=== PATIENT | female | born 1995 | race Caucasian/White ===

== ENCOUNTER 2017-08-13 17:04 | Emergency (ER) | payer SELFPAY ==
[2017-08-13 18:39] LABS: APPEARANCE,URINE SLIGHTLY-CLOUDY; BILIRUBIN,URINE NEGATIVE (NEGATIVE); COLOR,URINE YELLOW; GLUCOSE, URINE >=500 mg/dL (NEGATIVE); KETONES,URINE NEGATIVE (NEGATIVE); LEUKOCYTE ESTERASE,URINE LARGE (NEGATIVE); NITRITE,URINE NEGATIVE (NEGATIVE); PROTEIN,URINE NEGATIVE (NEGATIVE); URINE SPECIFIC GRAVITY 1.023
--- NOTE | 2017-08-13 18:57 | ER Document Report ---
ED GI/ - General Chief Complaint: Urinary Problem Stated Complaint: BURNING WITH URINATION Time Seen by Provider: 08/13/17 17:54 Mode of Arrival: Ambulatory Information source: Patient TRAVEL OUTSIDE OF THE [place] IN LAST 30 DAYS: No - HPI Patient complains to provider of: Dysuria, Vaginal pain Notes: 08/13/17 18:55 Patient is here with complaints of vaginal pain as well as dysuria. She states that for the last week and has she has had dysuria consistent with previous UTIs she has had in the past. She denies any fevers. She denies any flank pain. No nausea, vomiting, diarrhea. She is also concerned that she may have a rip in her vaginal area as anytime she spreads her legs she has burning pain in her vaginal area. No bleeding. No discharge. No nausea, vomiting, diarrhea. No chest pain or shortness of breath. No other complaints at this time. - Related Data Allergies/Adverse Reactions: No Known Allergies Allergy (Verified 06/02/15 17:40) Past Medical History - Social History Smoking Status: Never Smoker Chew tobacco use (# tins/day): No Frequency of alcohol use: None Drug Abuse: None Family History: Reviewed & Not Pertinent, Arthritis, CAD, DM, Hyperlipidemia, Hypertension, Malignancy, Thyroid Disfunction Patient has suicidal ideation: No Patient has homicidal ideation: No Renal/ Medical History: Denies: Hx Peritoneal Dialysis Past Surgical History: Reports: Hx Section - Immunizations Immunizations up to date: Yes Hx Diphtheria, Pertussis, Tetanus Vaccination: Yes Review of Systems - Review of Systems -: Yes All other systems reviewed and negative Physical Exam - Vital signs Vitals: Temp Pulse Resp BP Pulse Ox 99.3 F 98 18 133/70 H 98 08/13/17 17:45 08/13/17 17:45 08/13/17 17:45 08/13/17 17:45 08/13/17 17:45 - Notes Notes: GENERAL: alert, cooperative, nontoxic, no distress. HEAD: normocephalic, atraumatic EYES: conjunctiva pink without discharge, no external redness or swelling. EARS: no external swelling, no external redness NOSE: atraumatic, no external swelling MOUTH/THROAT: mucous membranes moist and pink, posterior pharynx without erythema, swelling, exudate. No trismus or drooling. NECK: soft, supple, full range of motion, no meningismus. CHEST: no distress, lungs clear and equal throughout. No wheezing, rales, rhonchi. CARDIAC: regular rate and rhythm, no murmur, normal capillary refill, normal pulses. No peripheral edema noted. ABDOMEN: Soft, nontender. No rebound tenderness or guarding. BACK: full range of motion, no CVA tenderness. EXTREMITIES: full range of motion of all extremities. No redness, no swelling. NEURO: alert and oriented x 3, no focal deficits, full range of motion of all extremities. PYSCH: appropriate mood, affect. Patient is cooperative. SKIN: pink, warm, dry, no rash. : Performed with female at the bedside. Patient is noted to have ulcerated and vesicular lesions in the vaginal entrance that are painful. White vaginal discharge with mild odor. Cervix closed. No cervical lesions. No cervical motion tenderness. Course - Re-evaluation Re-evalutation: 08/13/17 20:14 Patient is nontoxic appearing with stable vitals. She is here with complaints of burning with urination as well as burning even without urination. She does appear to have urinary tract infection. is negative. On exam she has multiple ulcerations and vesicular lesions consistent with herpes. Herpes cultures currently pending. Wet prep is positive for bacterial vaginosis. GC chlamydia cultures are currently pending, but the patient was treated with Rocephin and Zithromax in the emergency department. This point she has a benign exam with no signs of PID. She is afebrile. She has no abdominal tenderness on exam. She will be discharged home with a prescription for Bactrim , acyclovir, Flagyl, Mitchell. She was instructed to contact her partner and let him know of her positive symptoms. She will be contacted if her herpes culture is positive. Follow-up with her primary care doctor at the next available appointment for HIV and syphilis testing. Follow-up sooner for worsening symptoms, high fever, persistent vomiting, severe abdominal pain, flank pain, or for any further concerns. The patient is noted to have elevated blood pressure during today's emergency department visit. The patient was informed of this finding. The patient was instructed that this may be related to pre-hypertension and requires further evaluation with a primary care provider. The patient has no hypertensive symptoms at this time. The patient's emergency department workup and current diagnosis were explained to the patient and or family. Follow-up instructions were provided. Medications if prescribed were discussed. Instructions for when to return to the emergency department including specific worrisome symptoms were discussed with the patient and/or family. - Vital Signs Vital signs: Temp Pulse Resp BP Pulse Ox 99.3 F 98 18 133/70 H 98 08/13/17 17:45 08/13/17 17:45 08/13/17 17:45 08/13/17 17:45 08/13/17 17:45 - Laboratory Laboratory results interpreted by me: 08/13/17 18:21 Urine Glucose (UA) >=500 H Urine Urobilinogen 2.0 H Ur Leukocyte Esterase LARGE H Discharge - Discharge Clinical Impression: Bacterial vaginosis UTI (urinary tract infection) Qualifiers: Urinary tract infection type: acute cystitis Hematuria presence: without hematuria Qualified Code(s): N30.00 - Acute cystitis without hematuria Herpes genitalia Qualifiers: Herpes simplex infection site: vulvovaginitis Qualified Code(s): A60.04 - Herpesviral vulvovaginitis Condition: Stable Disposition: HOME, SELF-CARE Instructions: Acyclovir ([facility]), Genital Herpes ([facility]), Trimethoprim-Sulfa ([facility]), Urinary Tract Infection ([facility]), Vaginosis, Bacterial ([facility]) Additional Instructions: Take medications as prescribed. Drink plenty fluids. Light your partner know of your rash. Follow-up with your doctor for HIV and syphilis testing. Follow- up sooner for worsening symptoms, high fever, persistent vomiting, abdominal pain, flank pain, or for any further concerns. Your blood pressure was elevated during today's visit. Have this rechecked with your doctor. The medication you were prescribed today may cause drowsiness. Do not drive or operate heavy machinery while taking this medication. Prescriptions: Acyclovir [Acyclovir 400 mg Tablet] 400 mg PO TID #30 tablet Hydrocodone/Acetaminophen [Mitchell 5-325 mg Tablet] 1 tab PO Q6H PRN #10 tab PRN Reason: Metronidazole [Flagyl 500 mg Tablet] 500 mg PO Q6H #28 tablet Sulfamethoxazole/Trimethoprim [Bactrim Ds Tablet] 1 each PO BID #20 tablet Forms: Elevated Blood Pressure, Smoking Cessation Education Referrals: [facility] [Provider Group] - Follow up as needed
[2017-08-13] MEDS ORDERED: AZITHROMYCIN 250 MG TABLET PO ONE (19:40)
[2017-08-13] MEDS ORDERED: ACYCLOVIR 200 MG CAPSULE PO ONE (19:40)
[2017-08-13] MEDS ORDERED: CEFTRIAXONE INJ 250 MG VIAL IM ONE (19:40)
[2017-08-13 19:54] LABS: BACTERIA (WET MOUNT) 4+ BACTERIA SEEN; EPITHELIALS (WET MOUNT) 3+ EPITHELIALS SEEN; T.VAGINALIS (WET MOUNT) NO TRICHOMONAS SEEN; WBCS (WET MOUNT) 1+ WBCS SEEN; YEAST (WET MOUNT) NO YEAST SEEN
[2017-08-13 21:06] VITALS: BP 128/74
[2017-08-13 21:19] LABS: CHLAM PCR NOT DETECTED (NOT DETECT); GON PCR NOT DETECTED (NOT DETECT)
== END 2017-08-13 21:06 | disposition home or self-care (01) ==
LOC: ER 17:04
DX: N30.00 Acute cystitis without hematuria (principal); A60.04 Herpesviral vulvovaginitis; N76.0 Acute vaginitis; B96.89 Other specified bacterial agents as the cause of diseases classified elsewhere; R03.0 Elevated blood-pressure reading, without diagnosis of hypertension
CPT/HCPCS: 99283; 96372; 87210; 81025; 81001; 87250; 87491; 87591; J0696

== ENCOUNTER 2017-09-17 09:14 | Emergency (ER) | payer SELFPAY ==
[2017-09-17 10:05] LABS: APPEARANCE,URINE CLEAR; BILIRUBIN,URINE NEGATIVE (NEGATIVE); COLOR,URINE STRAW; GLUCOSE, URINE >=500 mg/dL (NEGATIVE); KETONES,URINE NEGATIVE (NEGATIVE); LEUKOCYTE ESTERASE,URINE NEGATIVE (NEGATIVE); NITRITE,URINE NEGATIVE (NEGATIVE); PROTEIN,URINE NEGATIVE (NEGATIVE); URINE SPECIFIC GRAVITY 1.002; UROBILINOGEN,URINE NEGATIVE mg/dL (<2.0)
--- NOTE | 2017-09-17 11:35 | ER Document Report ---
ED General - General Chief Complaint: Back Pain Stated Complaint: BACK PAIN Time Seen by Provider: 09/17/17 10:52 Mode of Arrival: Ambulatory Information source: Patient TRAVEL OUTSIDE OF THE [place] IN LAST 30 DAYS: No - HPI Notes: 22-year-old female presents to the ED for complaints of lower back pain that started acutely last night. States she noticed that when she went to bed. Denies any recent trauma or falling. Patient reports she has been sexually active, was placed on control x 3 months ago. is unsure of . Denies any dysuria, vaginal pain or pelvic pain. Worse with movement, better at rest. Pain is approximately 4 out of 10, achy. Has not tried any over-the- counter ibuprofen or Tylenol, has not tried any heat or ice. Denies fevers, chills, chest pain,palpitations, shortness of breath, dyspnea, nausea, vomiting, diarrhea, abdominal pain, hematuria,blurred vision, double vision, loss of vision, speech changes, LH, dizziness, syncope, headaches, wheezing, ST , URI, neck pain, weakness, bowel or bladder dysfunction, saddle anesthesia, numbness or tingling in bilateral upper or lower extremities equally, muscle paralysis, weakness in bilateral upper or lower extremities equally or rash. Denies IV drug use. - Related Data Allergies/Adverse Reactions: No Known Allergies Allergy (Verified 09/17/17 09:18) Past Medical History - General Information source: Patient - Social History Smoking Status: Never Smoker Chew tobacco use (# tins/day): No Frequency of alcohol use: None Drug Abuse: None Family History: Reviewed & Not Pertinent, Arthritis, CAD, DM, Hyperlipidemia, Hypertension, Malignancy, Thyroid Disfunction Patient has suicidal ideation: No Patient has homicidal ideation: No Renal/ Medical History: Denies: Hx Peritoneal Dialysis Past Surgical History: Reports: Hx Section - Immunizations Immunizations up to date: Yes Hx Diphtheria, Pertussis, Tetanus Vaccination: Yes Review of Systems - Review of Systems Constitutional: No symptoms reported EENT: No symptoms reported Cardiovascular: No symptoms reported Respiratory: No symptoms reported Gastrointestinal: No symptoms reported Genitourinary: No symptoms reported Female Genitourinary: No symptoms reported Musculoskeletal: See HPI Skin: No symptoms reported Hematologic/Lymphatic: No symptoms reported Neurological/Psychological: No symptoms reported Physical Exam - Vital signs Vitals: Temp Pulse Resp BP Pulse Ox 98.7 F 82 16 133/81 H 99 09/17/17 09:20 09/17/17 09:20 09/17/17 09:20 09/17/17 09:20 09/17/17 09:20 - Notes Notes: PHYSICAL EXAMINATION: GENERAL: Well-appearing, well-nourished and in no acute distress. HEAD: Atraumatic, normocephalic. EYES: Pupils equal round and reactive to light, extraocular movements intact, conjunctiva are normal. ENT: Nares patent, oropharynx clear without exudates. Moist mucous membranes. NECK: Normal range of motion, supple without lymphadenopathy LUNGS: Breath sounds clear to auscultation bilaterally and equal. No wheezes rales or rhonchi. HEART: Regular rate and rhythm without murmurs ABDOMEN: Soft, nontender, nondistended abdomen. No guarding, no rebound. No masses appreciated. Female : deferred Musculoskeletal: Normal range of motion, no pitting or edema. No cyanosis. No pain with flexion, extension or hip rotation bilaterally. positive straight leg test on right. DTR +2 in BLE equally. Strength 5 out of 5 both distally and proximally to bilateral lower extremities normal motor and sensory function in BLE equally. Distal pulses + 2 BLE equally. Noted paraspinal and spinal tenderness on L2 and L3. No CVA tenderness bilaterally. Femoral pulses + 2 bilaterally and equally. No abrasions, scars, lacerations, ecchymosis of any recent trauma. normal gait. NEUROLOGICAL: Cranial nerves grossly intact. Normal speech, normal gait. Normal sensory, motor exams PSYCH: Normal mood, normal affect. SKIN: Warm, Dry, normal turgor, no rashes or lesions noted. Course - Re-evaluation Re-evalutation: 22-year-old female is afebrile, vitals stable no distress for evaluation of urinalysis negative for UTI, patient does have glucose in urine that was checked while in triage, blood sugar was checked Via Accu-Chek approximately 2-1 /2 hours later and blood sugar was 80. Patient states she ate fast food this morning, denies a history of diabetes. Noted spinal tenderness with paraspinal tenderness on examination of lumbar spine, lumbar x-ray negative for any acute fracture dislocation. Advised patient take Flexeril, do not drive, drink or operate heavy machinery while taking medication as it can cause sedation. I have reevaluated this patient multiple times and no significant life threatening changes, no signs of toxicity, sepsis or peritonitis are noted. The patient and I have discussed the diagnosis and risks, and we agree with discharging home and close follow-up. We also discussed returning to the Emergency Department immediately if new or worsening symptoms occur with the understanding that symptoms and presentations can change. At this time will discharge with return precautions and follow-up recommendations. Verbal discharge instructions given a the bedside and opportunity for questions given. We have discussed the symptoms which are most concerning (e.g., saddle anesthesia, urinary or bowel incontinence or retention, changing or worsening pain) that necessitate immediate return. Medication warnings reviewed. All questions and concerns answered by this provider. Patient is in agreement with this plan and has verbalized understanding of return precautions and the need for primary care follow-up in the next 24-72 hours. Patient verbalized understanding of plan of care and agree with plan of care. - Vital Signs Vital signs: Temp Pulse Resp BP Pulse Ox 98.8 F 71 16 122/77 100 09/17/17 12:54 09/17/17 12:54 09/17/17 09:20 09/17/17 12:54 09/17/17 12:54 - Laboratory Laboratory results interpreted by me: 09/17/17 09:42 Urine Glucose (UA) >=500 H Discharge - Discharge Clinical Impression: Strain of fascia of lower back Condition: Stable Disposition: HOME, SELF-CARE Instructions: Low Back Pain ([facility]), Muscle Strain ([facility]), Range of Motion Exercises ([facility]), Stretching Exercises for the Back ([facility]), Warm Packs ([facility]) Additional Instructions: LOW BACK PAIN: Three out of every four people will have an episode of disabling back pain during their lifetime. Most commonly the pain is due to straining of the muscles and ligaments in the low back. Usual treatment includes: (1) Rest on a firm surface. Avoid lying on your stomach. (2) Ice pack the painful area. After a few days, gentle heat may be used intermittently to relax the area, or ice packs can be continued. (3) Medication may be needed -- muscle relaxers and antiinflammatory medicines are commonly used. (4) As the back improves, exercises are prescribed to strengthen the back and abdominal muscles. Your doctor will advise you on the proper care for your back at each stage in your recovery. You may be better in a few days -- or healing may take several weeks. If new symptoms of a "herniated disc" (radiation of pain, numbness, or tingling down the back of the leg or weakness in the leg) occur, you should be re-examined. Further testing may be necessary. PAIN MEDICATION INJECTION: You have received an injection of a pain medication. You should experience significant pain relief within 45 minutes. If this injection was a narcotic -- it will impair your judgement, slow your reaction time and make you sleepy (as well as relieve your pain). Narcotics also can cause nausea. You should not drive, work with machinery, or perform any task requiring mental alertness until all effects of the medication are gone -- six to eight hours. Do not take any alcohol, or sedatives, and do not take any other medication without checking with your physician. MUSCLE RELAXERS: Muscle relaxing medications are usually prescribed for acute muscle spasm or injury to the neck and back. They are often combined with antiinflammatory pain medication for increased relief. You may stop the muscle relaxer when the pain and stiffness have improved. Start the medication again if spasms recur. Muscle relaxers may cause drowsiness, especially with the first dose. Do not operate machinery or drive while under the effects of the medication. Most muscle relaxers last up to 24 hours. Do not combine the medication with alcohol. ICE PACKS: Apply ice packs frequently against the painful area. Many different schedules are recommended, such as "20 minutes on, 20 minutes off" or "one hour ice, two hours rest." If you need to work, you may need to go longer between ice treatments. You should plan to have the area ice packed AT LEAST one fourth of the time. The ice should be applied over the wrap, tape, or splint, or over a layer of cloth -- not directly against the skin. Some ice bags have a built-in cloth and can be put directly on the skin. WARM PACKS: After approximately two days, apply gentle heat (such as a heating pad or hot water bottle) for about 20 to 30 minutes about every two hours -- at least four times daily. Warmth and elevation will help you make a more rapid recovery , and will ease the pain considerably. Do not use HOT heat, and never apply heat for longer than 30 minutes. The continuous heat can invisibly damage skin and muscles -- even when no burn is seen on the surface. Damaged muscles can make you MORE sore. FOLLOW-UP CARE: If you have been referred to a physician for follow-up care, call the physician s office for an appointment as you were instructed or within the next two days. If you experience worsening or a significant change in your symptoms, notify the physician immediately or return to the Emergency Department at any time for re-evaluation. Return immediately for any new or worsening symptoms. Follow up with primary care provider, call tomorrow to make followup appointment. Prescriptions: Cyclobenzaprine HCl [Flexeril 10 mg Tablet] 10 mg PO TIDP PRN #9 tab PRN Reason: Ibuprofen 600 mg PO QIDP PRN #20 tablet PRN Reason: Forms: Return to Work Referrals: JOSE ANGEL TO MD [COMMUNITY BASED STAFF] - Follow up in 3-5 days MAITE CAMPO DO [ACTIVE STAFF] - Follow up in 1 week
--- NOTE | 2017-09-17 12:37 | RADIOLOGY REPORT (SQ) ---
EXAM DESCRIPTION: L SPINE WHOLE COMPLETED DATE/TIME: 09/17/2017 12:16 pm REASON FOR STUDY: sudden onset Lbp x 12 hours COMPARISON: 10/02/2012 NUMBER OF VIEWS: Five views including obliques. TECHNIQUE: AP, lateral, oblique, and sacral radiographic images acquired of the lumbar spine. LIMITATIONS: None. FINDINGS: MINERALIZATION: Normal. SEGMENTATION: 4 non rib-bearing lumbar vertebral bodies. ALIGNMENT: Normal. VERTEBRAE: Maintained height. No fracture or worrisome bone lesion. DISCS: Preserved height. No significant osteophytes or end plate irregularity. POSTERIOR ELEMENTS: Pedicles and facets are intact. No pars defect or posterior arch defects. HARDWARE: None in the spine. PARASPINAL SOFT TISSUES: Normal. PELVIS: Intact as visualized. No fractures or worrisome bone lesions. SI joints intact. OTHER: No other significant finding. IMPRESSION: Nothing acute. TECHNICAL DOCUMENTATION: JOB ID: [id number] [employer]- All Rights Reserved Reading location - IP/workstation name: [email or web address]
[2017-09-17 12:59] VITALS: BP 122/77
== END 2017-09-17 12:59 | disposition home or self-care (01) ==
LOC: ER 09:14
DX: S39.012A Strain of muscle, fascia and tendon of lower back, initial encounter (principal); X58.XXXA Exposure to other specified factors, initial encounter; Z79.3 Long term (current) use of hormonal contraceptives
CPT/HCPCS: 72110; 81001; 81025; 82962; 99283

== ENCOUNTER 2018-01-15 08:04 | Emergency (ER) | payer SELFPAY ==
--- NOTE | 2018-01-15 08:13 | ER Document Report ---
HPI - HPI Patient complains to provider of: sore throat, vaginal itch Onset: Yesterday Onset/Duration: Gradual Pain Level: 3 Context: 22-year-old non smoker female complaining of a sore throat and rare cough. 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 She also developed some introitus itching which she attributes to yeast infection. She has a history of HSV but no lesions or pain at this time. No vaginal discharge with an odor. No abd or pelvic pain. No new sexual partner. She does not think she has any STI and does not concerned about that. Associated Symptoms: None Exacerbated by: Denies Relieved by: Denies Similar symptoms previously: Yes Recently seen / treated by doctor: No - ROS ROS below otherwise negative: Yes Systems Reviewed and Negative: Yes All other systems reviewed and negative - REPRODUCTIVE Reproductive: DENIES: : Past Medical History - General Information source: Patient - Social History Smoking Status: Never Smoker Occupation: daycare employee Lives with: Family Family History: Arthritis, CAD, DM, Hyperlipidemia, Hypertension, Malignancy, Thyroid Disfunction - Medical History Medical History: Negative Past Surgical History: Reports: Hx Section - Immunizations Immunizations up to date: Yes Hx Diphtheria, Pertussis, Tetanus Vaccination: Yes Vertical Provider Document - CONSTITUTIONAL Agree With Documented VS: Yes Exam Limitations: No Limitations - INFECTION CONTROL TRAVEL OUTSIDE OF THE [place] IN LAST 30 DAYS: No - HEENT HEENT: Normal ENT Exam. negative: Conjuctival Injection, Pharyngeal Exudate, Pharyngeal Erythema, Tympanic Membrane Red - NECK Neck: Supple. negative: Lymphadenopathy-Left, Lymphadenopathy-Right - RESPIRATORY Respiratory: Breath Sounds Normal, No Respiratory Distress - CARDIOVASCULAR Cardiovascular: Regular Rate, Regular Rhythm - GI/ABDOMEN Gastrointestinal: Abdomen Soft, Abdomen Non-Tender - NEURO Level of Consciousness: Alert - DERM Integumentary: No Rash Course - Re-evaluation Re-evalutation: 01/15/18 09:06 Rapid strep is negative. Wet prep is negative for BV trichomonas or yeast. - Vital Signs Vital signs: Temp Pulse Resp BP Pulse Ox 98.2 F 70 16 134/84 H 100 01/15/18 08:09 01/15/18 08:09 01/15/18 08:09 01/15/18 08:09 01/15/18 08:09 Discharge - Discharge Clinical Impression: Sore throat, Vaginal itching Condition: Good Disposition: HOME, SELF-CARE Instructions: Sore Throat ([facility]), Acetaminophen, Topical Antifungal ([facility]) Additional Instructions: [id number] Monistat to the skin that is itching The wet prep was negative and the rapid strep was negative Throat culture is pending Drink plenty of fluids Tylenol up to 4000 mg a day for discomfort Forms: Return to Work
[2018-01-15 08:53] LABS: EPITHELIALS (WET MOUNT) 3+ EPITHELIALS SEEN; RBCS (WET MOUNT) NO RBCS SEEN; T.VAGINALIS (WET MOUNT) NO TRICHOMONAS SEEN; WBCS (WET MOUNT) 1+ WBCS SEEN; YEAST (WET MOUNT) NO YEAST SEEN
[2018-01-15 09:47] VITALS: BP 129/76
== END 2018-01-15 09:49 | disposition home or self-care (01) ==
LOC: ER 08:04
DX: J02.9 Acute pharyngitis, unspecified (principal); L29.9 Pruritus, unspecified; R05 Cough
CPT/HCPCS: 87070; 87210; 87880; 99283

== ENCOUNTER 2018-09-26 09:23 | Emergency (ER) | payer SELFPAY ==
[2018-09-26 09:38] VITALS: BP 119/81
--- NOTE | 2018-09-26 11:19 | ER Document Report ---
HPI - HPI Time Seen by Provider: 09/26/18 11:16 Pain Level: 4 Notes: Patient is an otherwise healthy 23-year-old female presented to the emergency department with chief complaint of sore throat, nasal congestion and bilateral ear pressure that has been going on for 3 days. Patient denies any nausea, vomiting, diarrhea or fevers. - REPRODUCTIVE Reproductive: DENIES: : Past Medical History - General Information source: Patient - Social History Smoking Status: Never Smoker Frequency of alcohol use: None Drug Abuse: None Family History: Arthritis, CAD, DM, Hyperlipidemia, Hypertension, Malignancy, Thyroid Disfunction - Medical History Medical History: Negative Renal/ Medical History: Denies: Hx Peritoneal Dialysis Past Surgical History: Reports: Hx Section - Immunizations Immunizations up to date: Yes Hx Diphtheria, Pertussis, Tetanus Vaccination: Yes Vertical Provider Document - CONSTITUTIONAL Notes: PHYSICAL EXAMINATION: GENERAL: Well-appearing, well-nourished and in no acute distress. HEAD: Atraumatic, normocephalic. EYES: Pupils equal round extraocular movements intact, conjunctiva are normal. ENT: Nares with clear rhinorrhea, throat mildly erythematous, nose tonsillar swelling or exudates noted, uvula midline. NECK: Normal range of motion, no cervical lymphadenopathy. LUNGS: No respiratory distress, lung sounds clear and equal bilaterally. Musculoskeletal: Normal range of motion NEUROLOGICAL: Normal speech, normal gait. PSYCH: Normal mood, normal affect. SKIN: Warm, Dry, normal turgor, no rashes or lesions noted. - INFECTION CONTROL TRAVEL OUTSIDE OF THE [place] IN LAST 30 DAYS: No Course - Re-evaluation Re-evalutation: Rapid strep was negative. Patient appears well, nontoxic and vital signs are within normal limits. Likely viral upper respiratory illness patient will be started on Flonase and encouraged to give this a little more time. She was also encouraged to push fluids and take Tylenol or ibuprofen for any aches, pains or discomfort. Patient verbalized understanding and agreement with plan. - Vital Signs Vital signs: Temp Pulse Resp BP Pulse Ox 98.9 F 85 16 119/81 98 09/26/18 09:36 09/26/18 09:36 09/26/18 09:36 09/26/18 09:36 09/26/18 09:36 Discharge - Discharge Clinical Impression: Viral upper respiratory illness, Sore throat Condition: Stable Disposition: HOME, SELF-CARE Additional Instructions: Please take Flonase as prescribed. Take some ibuprofen 600 mg every 6 hours for any sore throat pain. You may also buy an rgfj-zbe-bqefzaa throat spray if this is helpful. Hot tea may also be soothing to your throat. Please continue to take the Mucinex/guaifenesin as directed on the bottle. Please be sure to drink plenty of fluids with this. The rapid strep was negative, throat culture is pending, someone will call you in the next 2 to 3 days if this is abnormal. Prescriptions: Fluticasone Propionate [Flonase Nasal [place] 50 Mcg/[place] 16 gm] 1 spray NASL Q12 #1 inhaler Forms: Return to Work
[2018-09-26] MEDS ORDERED: DEXAMETHASONE SOD PHOS INJ 10 MG/1 ML VIAL IM ONE (11:20)
== END 2018-09-26 12:37 | disposition home or self-care (01) ==
LOC: ER 09:23
DX: J06.9 Acute upper respiratory infection, unspecified (principal); J02.9 Acute pharyngitis, unspecified; R09.81 Nasal congestion
CPT/HCPCS: 99283; 87070; 87880; J1100

== ENCOUNTER 2018-12-24 18:25 | Emergency (ER) | payer BC ==
[2018-12-24 18:30] VITALS: BP 142/84
[2018-12-24] MEDS ORDERED: IBUPROFEN 800 MG TABLET PO ONE (20:15)
--- NOTE | 2018-12-24 21:07 | ER Document Report ---
HPI - HPI Patient complains to provider of: left foot injury Time Seen by Provider: 12/24/18 20:11 Onset: Yesterday Onset/Duration: Sudden Quality of pain: Achy Pain Level: 4 Context: Patient states that she pulled a drawer out accidentally dropped it on the top of her left foot. Patient complains of pain swelling and bruising to the left foot. Associated Symptoms: Other - Left foot pain Exacerbated by: Standing, Movement, Walking Relieved by: Denies Similar symptoms previously: No Recently seen / treated by doctor: No - ROS ROS below otherwise negative: Yes Systems Reviewed and Negative: Yes All other systems reviewed and negative - GASTROINTESTINAL Gastrointestinal: DENIES: Nausea - REPRODUCTIVE Reproductive: DENIES: : - MUSCULOSKELETAL Musculoskeletal: REPORTS: Extremity pain - left foot, Swelling - DERM Skin Color: Ecchymosis Past Medical History - General Information source: Patient - Social History Smoking Status: Never Smoker Frequency of alcohol use: None Drug Abuse: None Occupation: Childcare Lives with: Family Family History: Arthritis, CAD, DM, Hyperlipidemia, Hypertension, Malignancy, Thyroid Disfunction Patient has suicidal ideation: No Patient has homicidal ideation: No - Medical History Medical History: Negative Renal/ Medical History: Denies: Hx Peritoneal Dialysis Past Surgical History: Reports: Hx Section - Immunizations Immunizations up to date: Yes Hx Diphtheria, Pertussis, Tetanus Vaccination: Yes Vertical Provider Document - CONSTITUTIONAL Agree With Documented VS: Yes Exam Limitations: No Limitations General Appearance: WD/WN, No Apparent Distress - INFECTION CONTROL TRAVEL OUTSIDE OF THE [place] IN LAST 30 DAYS: No - HEENT HEENT: Atraumatic, Normocephalic - NECK Neck: Normal Inspection - RESPIRATORY Respiratory: Breath Sounds Normal, No Respiratory Distress - CARDIOVASCULAR Cardiovascular: Regular Rate, Regular Rhythm Pulses: Normal: Dorsalis pedis - MUSCULOSKELETAL/EXTREMETIES Musculoskeletal/Extremeties: MAEW, FROM, Tender - Tenderness to the distal metatarsal and base of the first second and third toes of the left foot, Edema, Eccymosis - NEURO Level of Consciousness: Awake, Alert, Appropriate Motor/Sensory: No Motor Deficit - DERM Integumentary: Warm, Dry Course - Vital Signs Vital signs: Temp Pulse Resp BP Pulse Ox 98.2 F 87 16 142/84 H 100 12/24/18 18:29 12/24/18 18:29 12/24/18 18:29 12/24/18 18:29 12/24/18 18:29 - Diagnostic Test Radiology reviewed: Pending, Image reviewed Procedures - Immobilization Left Foot Pre-Proc Neuro Vasc Exam: Normal Immobilizer type: Post-op shoe Performed by: PCT Post-Proc Neuro Vasc Exam: Normal Alignment checked and good: Yes Discharge - Discharge Clinical Impression: Sprain of left foot Qualifiers: Encounter type: initial encounter Qualified Code(s): S93.602A - Unspecified sprain of left foot, initial encounter Contusion of left foot Qualifiers: Encounter type: initial encounter Qualified Code(s): S90.32XA - Contusion of left foot, initial encounter Condition: Stable Disposition: HOME, SELF-CARE Instructions: Use of Crutches ([facility]), Ice Packs ([facility]), Post-Op Shoe ([facility]), Sprain ([facility]) Additional Instructions: Return immediately for any new or worsening symptoms Followup with your primary care provider, call tomorrow to make a followup appointment Weightbearing as tolerated Follow-up with orthopedics for any persistent pain or problems Prescriptions: Naproxen [Naprosyn 250 Nmg Tablet] 1 tab PO BID #14 tablet Forms: Restricted Release, Return to Work Referrals: ROWAN BENAVIDES JR, DO [ACTIVE PROVISIONAL STAFF] - Follow up as needed [facility] [Provider Group] - Follow up as needed
--- NOTE | 2018-12-25 00:51 | RADIOLOGY REPORT (SQ) ---
CLINICAL HISTORY: L 1-3 toe/MT injury, drawer fell on foot COMPARISON: None. TECHNIQUE: XR FOOT 3 OR MORE VIEWS 12/24/2018 8:15 PM CDT FINDINGS: There is no fracture. Joint spaces are preserved. Soft tissues are unremarkable. IMPRESSION: No acute osseous findings.
== END 2018-12-24 21:39 | disposition home or self-care (01) ==
LOC: ER 18:25
DX: S93.602A Unspecified sprain of left foot, initial encounter (principal); W20.8XXA Other cause of strike by thrown, projected or falling object, initial encounter
CPT/HCPCS: 99283

== ENCOUNTER 2019-09-01 17:57 | Emergency (ER) | payer BC, MEDICAID ==
[2019-09-01 18:03] VITALS: BP 151/95
[2019-09-01] MEDS ORDERED: ERYTHROMYCIN 0.5% OPH OINTMENT 3.5 GM TUBE OD ONE (18:09)
--- NOTE | 2019-09-01 18:11 | ER Document Report ---
HPI - HPI Time Seen by Provider: 09/01/19 18:05 Notes: Otherwise healthy 24-year-old female presenting to the emergency department with concern for conjunctivitis. Patient has redness and drainage from her right eye. She states this is been there for several days and now is starting to move to the left eye. She reports every morning she wakes up her eyes crusted shut. She denies use of any contacts, denies any fever and denies any pain in the eye. She reports normal vision at this time. - REPRODUCTIVE Reproductive: DENIES: : Past Medical History - General Information source: Patient - Social History Smoking Status: Never Smoker Frequency of alcohol use: None Drug Abuse: None Family History: Arthritis, CAD, DM, Hyperlipidemia, Hypertension, Malignancy, Thyroid Disfunction - Medical History Medical History: Negative Renal/ Medical History: Denies: Hx Peritoneal Dialysis Past Surgical History: Reports: Hx Section - Immunizations Immunizations up to date: Yes Hx Diphtheria, Pertussis, Tetanus Vaccination: Yes Vertical Provider Document - CONSTITUTIONAL Notes: PHYSICAL EXAMINATION: GENERAL: Well-appearing, well-nourished and in no acute distress. HEAD: Atraumatic, normocephalic. EYES: Pupils equal round extraocular movements intact, conjunctiva erythematous to the right side. ENT: Nares patent NECK: Normal range of motion LUNGS: No respiratory distress Musculoskeletal: Normal range of motion NEUROLOGICAL: Normal speech, normal gait. PSYCH: Normal mood, normal affect. SKIN: Warm, Dry, normal turgor, no rashes or lesions noted. - INFECTION CONTROL TRAVEL OUTSIDE OF THE [place] IN LAST 30 DAYS: No Course - Re-evaluation Re-evalutation: Conjunctivitis on exam. Patient was started on erythromycin ointment. Work note provided. Patient given ED return precautions. - Vital Signs Vital signs: Temp Pulse Resp BP Pulse Ox 98.1 F 81 20 151/95 H 100 09/01/19 18:02 09/01/19 18:02 09/01/19 18:02 09/01/19 18:09/01/19 18:02 Discharge - Discharge Clinical Impression: Conjunctivitis Qualifiers: Conjunctivitis type: acute Acute conjunctivitis type: unspecified Laterality: right Qualified Code(s): H10.31 - Unspecified acute conjunctivitis, right eye Condition: Stable Disposition: HOME, SELF-CARE Additional Instructions: Conjunctivitis You have an infection in your eye, commonly known as "pink eye." Conjunctivitis causes redness, mild discomfort, itching, and mattering on the eyelids. It is very contagious, so you must be careful to wash your hands after touching your face so you don't pass the infection on to others. Conjunctivitis is caused by both viruses and bacteria. It usually responds quickly to treatment with antibiotic drops. These should be placed in the eye as prescribed (usually every three to four hours while you're awake). If you wear contact lenses, don't put them in your eyes until the infection is cleared and you are no longer using the drops (unless your doctor advises you otherwise). Should you develop increasing eye pain, severe swelling, decreased vision, or fail to improve as expected, please return for re-examination. Apply a thin ribbon of the ointment to the affected eye 4-6 times daily for 7 days. If your other eye begins to feel infected please use it in this eye as well. You are contagious for 24 hours from the first dose of the antibiotics. Please wash your bedding and pillowcases tomorrow. You may return to work Sunday. Forms: Return to Work
[2019-09-01] MEDS ORDERED: ERYTHROMYCIN 0.5% OPH OINTMENT 3.5 GM (ER DISP) OD ONE (18:30)
== END 2019-09-01 18:21 | disposition home or self-care (01) ==
LOC: ER 17:57
DX: H10.31 Unspecified acute conjunctivitis, right eye (principal)
CPT/HCPCS: 99282; J3490

== ENCOUNTER 2019-12-30 07:27 | Emergency (ER) | payer SELFPAY ==
[2019-12-30 09:40] LABS: APPEARANCE,URINE SLIGHTLY-CLOUDY; BILIRUBIN,URINE NEGATIVE (NEGATIVE); COLOR,URINE YELLOW; GLUCOSE, URINE >=500 mg/dL (NEGATIVE); KETONES,URINE TRACE mg/dL (NEGATIVE); LEUKOCYTE ESTERASE,URINE NEGATIVE (NEGATIVE); NITRITE,URINE NEGATIVE (NEGATIVE); PROTEIN,URINE 30 mg/dL (NEGATIVE); URINE SPECIFIC GRAVITY 1.026; UROBILINOGEN,URINE NEGATIVE mg/dL (<2.0)
[2019-12-30] MEDS ORDERED: KETOROLAC TROMETHAMINE 60 MG/2 ML SDV IM ONE (09:52)
--- NOTE | 2019-12-30 09:53 | ER Document Report ---
ED General - General Chief Complaint: Headache Stated Complaint: COUGH,CONGESTION,HEADACHE Time Seen by Provider: 12/30/19 09:20 Mode of Arrival: Ambulatory Information source: Patient Notes: 24-year-old female no previous medical problems presents to the emergency room complaining of a cough that started earlier today. States she had a frontal headache for the past 2 days. Denies any nausea, vomiting, no photophobia. No history of migraines. Denies worst headache of her life. Denies sudden thunderclap. States she is been taken Tylenol with minimal relief. Denies any recent travel. Patient states that 1 of her coworkers recently tested positive for COVID she denies any direct contact with that particular coworker that she is aware of. However she has concerns for possible COVID. Not had any COVID-19 testing. She is eating and drinking normally. No other known ill contacts. TRAVEL OUTSIDE OF THE [place] IN LAST 30 DAYS: No - Related Data Allergies/Adverse Reactions: No Known Allergies Allergy (Verified 09/26/18 09:28) Home Medications: control Past Medical History - General Information source: Patient - Social History Smoking Status: Never Smoker Chew tobacco use (# tins/day): No Frequency of alcohol use: None Drug Abuse: None Family History: Arthritis, CAD, DM, Hyperlipidemia, Hypertension, Malignancy, Thyroid Disfunction Renal/ Medical History: Denies: Hx Peritoneal Dialysis Past Surgical History: Reports: Hx Section - Immunizations Immunizations up to date: Yes Hx Diphtheria, Pertussis, Tetanus Vaccination: Yes Review of Systems - Review of Systems Constitutional: No symptoms reported EENT: No symptoms reported Cardiovascular: No symptoms reported Respiratory: Cough. denies: Hurts to breathe, Short of breath, Wheezing Gastrointestinal: No symptoms reported Musculoskeletal: No symptoms reported Skin: No symptoms reported Neurological/Psychological: Headaches -: Yes All other systems reviewed and negative Physical Exam - Vital signs Vitals: Temp Pulse Resp BP Pulse Ox 98.4 F 77 18 125/77 100 12/30/19 08:02 12/30/19 08:02 12/30/19 08:02 12/30/19 08:02 12/30/19 08:02 - General General appearance: Appears well, Alert In distress: Mild - HEENT Head: Normocephalic, Atraumatic Eyes: Normal Conjunctiva: Normal Cornea: Normal Extraocular movements intact: Yes Pupils: PERRL Ears: Normal Tympanic membrane: Normal Sinus: Normal Nasal: Normal Pharynx: Normal Neck: Normal - Respiratory Respiratory status: No respiratory distress Chest status: Nontender Breath sounds: Normal Chest palpation: Normal - Cardiovascular Rhythm: Regular Heart sounds: Normal auscultation Murmur: No - Extremities General upper extremity: Normal inspection, Nontender, Normal color, Normal ROM, Normal temperature General lower extremity: Normal inspection, Nontender, Normal color, Normal ROM, Normal temperature, Normal weight bearing. No: Carl's sign - Neurological Neuro grossly intact: Yes Cognition: Normal Orientation: AAOx4 Piero Coma Scale Eye Opening: Spontaneous [place] Coma Scale Verbal: Oriented Piero Coma Scale Motor: Obeys Commands [place] Coma Scale Total: 15 Speech: Normal Motor strength normal: LUE, RUE, LLE, RLE Sensory: Normal - Skin Skin Temperature: Warm Skin Moisture: Dry Skin Color: Normal Course - Re-evaluation Re-evalutation: 12/30/19 11:04 Reviewed lab and x-ray results with patient. Discussed elevated glucose in the urine. Patient states she has been diagnosed as being a prediabetic has a follow-up appointment with her primary care physician in March. Will get Accu-Chek prior to discharge. Patient states her headache has resolved. Is feeling better. Patient was evaluated during the global COVID-19 pandemic and that diagnosis was suspected/considered upon their initial presentation. Their evaluation, treatment and testing was consistent with current guidelines for patients who presents with complaints or systems that may be related to COVID-19. Patient was counseled on the importance of self quarantine for the next 14 days unless she receives a negative COVID test prior to that time. Was counseled to rest, push fluids. Outpatient follow-up with primary care physician if not improving in 2 to 3 days. Tylenol and or Motrin for her pain. Patient was given strict return to the emergency room guidelines. Return for any new or worsening symptoms. All questions were answered. Patient verbalized understanding and agrees with plan of care. 12/30/19 11:13 Accu-Chek 108 stable for discharge counseled on the importance of monitoring her blood sugars with her primary care physician as discussed. 12/30/19 11:53 - Vital Signs Vital signs: Temp Pulse Resp BP Pulse Ox 98.4 F 80 18 130/80 H 99 12/30/19 09:48 12/30/19 11:40 12/30/19 11:40 12/30/19 11:40 12/30/19 11:40 - Laboratory Laboratory results interpreted by me: 12/30/19 09:10 Urine Protein 30 H Urine Glucose (UA) >=500 H Urine Ketones TRACE H Urine Blood LARGE H - Diagnostic Test Radiology reviewed: Reports reviewed Discharge - Discharge Clinical Impression: Cough, Exposure to COVID-19 virus Headache Qualifiers: Headache type: unspecified Headache chronicity pattern: acute headache Intractability: not intractable Qualified Code(s): R51 - Headache Condition: Stable Disposition: HOME, SELF-CARE Instructions: COVID-19 Guidance for Persons Under Investigation, Headache ([facility]), Upper Respiratory Illness ([facility]) Additional Instructions: Rest, push fluids, you are required to self quarantine for the next 14 days unless she received a negative cover test results prior to that time. Tylenol and or Motrin as needed for pain. Follow-up with primary care physician if not improving in 2 to 3 days. Return to the emergency room for any new or worsening symptoms.
--- NOTE | 2019-12-30 10:33 | RADIOLOGY REPORT (SQ) ---
EXAM DESCRIPTION: CHEST SINGLE VIEW IMAGES COMPLETED DATE/TIME: 12/30/2019 10:17 am REASON FOR STUDY: cough COMPARISON: None. NUMBER OF VIEWS: One view. TECHNIQUE: Single frontal radiographic view of the chest acquired. LIMITATIONS: None. FINDINGS: LUNGS AND PLEURA: No opacities, masses or pneumothorax. No pleural effusion. MEDIASTINUM AND HILAR STRUCTURES: No masses. Contour normal. HEART AND VASCULAR STRUCTURES: Heart normal in size. Normal vasculature. BONES: No acute findings. HARDWARE: None in the chest. OTHER: No other significant finding. IMPRESSION: NO SIGNIFICANT RADIOGRAPHIC FINDING IN THE CHEST. TECHNICAL DOCUMENTATION: JOB ID: [id number] 2010 [employer]- All Rights Reserved Reading location - IP/workstation name: [email or web address]
[2019-12-30 11:40] VITALS: BP 130/80
== END 2019-12-30 11:41 | disposition home or self-care (01) ==
LOC: ER 07:27
DX: R51 Headache (principal); R05 Cough; R68.89 Other general symptoms and signs; Z20.828 Contact with and (suspected) exposure to other viral communicable diseases
CPT/HCPCS: 99284; 96372; 87086; 82962; 87635; 81025; 81001; 71045; J1885; C9803

== ENCOUNTER 2020-01-01 07:54 | Emergency (ER) | payer SELFPAY ==
[2020-01-01 08:53] LABS: APPEARANCE,URINE SLIGHTLY-CLOUDY; BILIRUBIN,URINE NEGATIVE (NEGATIVE); COLOR,URINE YELLOW; GLUCOSE, URINE >=500 mg/dL (NEGATIVE); KETONES,URINE NEGATIVE (NEGATIVE); LEUKOCYTE ESTERASE,URINE TRACE (NEGATIVE); NITRITE,URINE NEGATIVE (NEGATIVE); PROTEIN,URINE 30 mg/dL (NEGATIVE); UROBILINOGEN,URINE NEGATIVE mg/dL (<2.0)
--- NOTE | 2020-01-01 09:16 | ER Document Report ---
ED General - General Chief Complaint: Sore Throat Stated Complaint: HEADACHE,COUGH Time Seen by Provider: 01/01/20 08:46 Primary Care Provider: [facility] [Provider Group] - Follow up as needed TRAVEL OUTSIDE OF THE [place] IN LAST 30 DAYS: No - HPI Notes: Patient is a 24-year-old female who presents for new onset of sore throat that began this morning. Patient was seen in the ED 2 days ago for nonproductive cough and headache. At that time she was concerned about COVID as she may have been exposed. COVID testing was performed and resulted negative yesterday. P atient denies chest pain, shortness of breath, fever, chills, nausea, vomiting, and abdominal pain. - Related Data Allergies/Adverse Reactions: No Known Allergies Allergy (Verified 01/01/20 08:04) Home Medications: Lo Estrin Past Medical History - General Information source: Patient - Social History Smoking Status: Never Smoker Chew tobacco use (# tins/day): No Frequency of alcohol use: None Drug Abuse: None Family History: Arthritis, CAD, DM, Hyperlipidemia, Hypertension, Malignancy, Thyroid Disfunction Patient has homicidal ideation: No Renal/ Medical History: Denies: Hx Peritoneal Dialysis Past Surgical History: Reports: Hx Section - Immunizations Immunizations up to date: Yes Hx Diphtheria, Pertussis, Tetanus Vaccination: Yes Review of Systems - Review of Systems Constitutional: No symptoms reported EENT: See HPI Cardiovascular: No symptoms reported Respiratory: See HPI Gastrointestinal: No symptoms reported Genitourinary: No symptoms reported Female Genitourinary: No symptoms reported Musculoskeletal: No symptoms reported Skin: No symptoms reported Hematologic/Lymphatic: No symptoms reported Neurological/Psychological: See HPI Physical Exam - Vital signs Vitals: Temp Pulse Resp BP Pulse Ox 97.7 F 87 16 138/85 H 98 01/01/20 07:58 01/01/20 07:58 01/01/20 07:58 01/01/20 07:58 01/01/20 07:58 - Notes Notes: PHYSICAL EXAMINATION: VITALS: Vitals reviewed and within normal limits. GENERAL: Well-appearing, well-nourished and in no acute distress. HEAD: Atraumatic, normocephalic. EYES: Pupils equal round and reactive to light, extraocular movements intact, sclera anicteric, conjunctiva are normal. ENT: nares patent, oropharynx clear without exudates. Moist mucous membranes. Maxillary and frontal sinus nontender. NECK: Normal range of motion, supple without lymphadenopathy. LUNGS: Breath sounds clear to auscultation bilaterally and equal. No wheezes rales or rhonchi. HEART: Regular rate and rhythm without murmurs. ABDOMEN: Soft, nontender, normoactive bowel sounds. No guarding, no rebound. No masses appreciated. EXTREMITIES: Normal range of motion, no pitting or edema. No cyanosis. NEUROLOGICAL: No focal neurological deficits. Moves all extremities spontaneously and on command. PSYCH: Normal mood, normal affect. SKIN: Warm, Dry, normal turgor, no rashes or lesions noted. Course - Re-evaluation Re-evalutation: Patient is a 24-year-old female who presents for sore throat, headache, and cou gh. Patient was seen in ED 2 days ago for similar symptoms and had COVID testing performed. COVID testing resulted yesterday and was negative. Vital signs today are within normal limits and patient is afebrile. On exam, lungs are clear to auscultation bilaterally, no frontal or maxillary sinus tenderness, and oropharynx is clear with no erythema or exudates. Rapid strep and flu both negative. Based on prior negative COVID testing and workup from today, patient's symptoms are consistent with a viral illness. UA shows elevated glucose >500, protein 30, small blood, and trace leukocyte esterase. Urine culture ordered as patient denies dysuria. Patient's urine glucose was elevated two days ago, will order an accucheck to assure patient's glucose is safe for discharge. Patient states she has been diagnosed as being a prediabetic and has a follow-up appointment with her primary care physician in March. We discussed the importance of monitoring her blood sugar and following up with her primary care provider as soon as she can. Discussed diagnosis with patient and instructed to take tylenol and ibuprofen for symptom relief as well as drink lots of fluids. Return precautions given. 01/01/20 11:01 Blood glucose 92 and safe for discharge. She will be discharged home. - Vital Signs Vital signs: Temp Pulse Resp BP Pulse Ox 98.3 F 65 16 144/90 H 98 01/01/20 11:15 01/01/20 11:15 01/01/20 11:15 01/01/20 11:15 01/01/20 11:15 - Laboratory Laboratory results interpreted by me: 01/01/20 08:25 Urine Protein 30 H Urine Glucose (UA) >=500 H Urine Blood SMALL H Ur Leukocyte Esterase TRACE H Discharge - Discharge Clinical Impression: Cough Headache Qualifiers: Headache type: unspecified Headache chronicity pattern: acute headache Intractability: not intractable Qualified Code(s): R51.9 - Headache, unspecified Upper respiratory infection Qualifiers: URI type: unspecified viral URI Qualified Code(s): J06.9 - Acute upper respiratory infection, unspecified Condition: Stable Disposition: HOME, SELF-CARE Additional Instructions: Your symptoms are likely due to a viral infection either influenza or similar virus. The only treatment at this time is supportive care including drinking plenty of fluids, Tylenol and ibuprofen, as well as nausea medicines which you will be sent home with. Your symptoms will likely last for 7-10 days. Please return to the emergency department immediately if you become confused, have persistent vomiting, pass out, have severe headache, or have any other symptoms that are worrisome to you. Follow-up with your primary care doctor in the next several days. Forms: Return to Work Referrals: [facility] [Provider Group] - Follow up as needed
[2020-01-01 10:29] LABS: A TYPE INFLUENZA AG NEGATIVE (NEGATIVE); B INFLUENZA AG NEGATIVE (NEGATIVE)
[2020-01-01 11:17] VITALS: BP 144/90
== END 2020-01-01 11:24 | disposition home or self-care (01) ==
LOC: ER 07:54
DX: J06.9 Acute upper respiratory infection, unspecified (principal); J02.9 Acute pharyngitis, unspecified; R05 Cough; R51.9 Headache, unspecified; Z79.899 Other long term (current) drug therapy
CPT/HCPCS: 81001; 81025; 82962; 87070; 87086; 87804; 87880; 99282